=== PATIENT | female | born 1990 | race Caucasian/White ===

== ENCOUNTER 2019-12-03 04:58 | Emergency (ER) | payer SELFPAY ==
[2019-12-03] MEDS ORDERED: ONDANSETRON HCL INJ/PF 4 MG/2 ML SDV IV ONE (06:05)
[2019-12-03] MEDS ORDERED: NORMAL SALINE 1000 ML 1,000 ML IV ONE (06:05)
[2019-12-03] MEDS ORDERED: MORPHINE SULFATE 10 MG/ML INJ IV ONE (06:05)
--- NOTE | 2019-12-03 06:07 | ER Document Report ---
ED Medical Screen (RME) - General Chief Complaint: Abdominal Pain Stated Complaint: RIGHT ABDOMINAL PAIN Time Seen by Provider: 12/03/19 06:00 Primary Care Provider: QING JAFFE [Primary Care Provider] - Follow up as needed Notes: 29-year-old female with chief complaint of right mid abdominal pain that is intermittently very sharp, she has vomited twice, symptoms started 3 PM last night and have not resolved. Denies any abdominal surgeries. Denies fever. Reports normal recent bowel movement. Denies flank pain. - Related Data Allergies/Adverse Reactions: No Known Allergies Allergy (Verified 12/03/19 05:08) Past Medical History - Social History Chew tobacco use (# tins/day): No Frequency of alcohol use: None Drug Abuse: None Physical Exam - Vital signs Vitals: Temp Pulse Resp BP Pulse Ox 97.5 F 83 18 127/71 H 100 12/03/19 05:02 12/03/19 05:02 12/03/19 05:02 12/03/19 05:02 12/03/19 05:02 - Abdominal Tenderness: Tender - Tender in the mid right abdomen and slightly in the upper abdomen, no overt McBurney's point tenderness Course - Re-evaluation Re-evalutation: I have greeted and performed a rapid initial assessment of this patient. A comprehensive ED assessment and evaluation of the patient, analysis of test results and completion of the medical decision making process will be conducted by additional ED providers. - Vital Signs Vital signs: Temp Pulse Resp BP Pulse Ox 97.5 F 83 18 127/71 H 100 12/03/19 05:03 12/03/19 05:02 12/03/19 05:02 12/03/19 05:02 12/03/19 05:02 Doctor's Discharge - Discharge Referrals: QING JAFFE [Primary Care Provider] - Follow up as needed
[2019-12-03 06:47] LABS: ABSOLUTE LYMPHOCYTES (AUTO) 1.1 10^3/uL (0.5-4.7); ABSOLUTE MONOCYTES (AUTO) 0.5 10^3/uL (0.1-1.4); ABSOLUTE NEUT (AUTO) 5.2 10^3/uL (1.7-8.2); BASOPHILS % (AUTO) 0.1 % (0-2); EOSINOPHILS % (AUTO) 0.3 % (0-6); HEMATOCRIT 41.6 % (36.0-47.0); HEMOGLOBIN 14.5 g/dL (12.0-15.5); MEAN CORPUSCULAR HEMOGLOBIN 30.3 pg (27.0-33.4); MEAN CORPUSCULAR HGB CONC 34.9 g/dL (32.0-36.0); MEAN CORPUSCULAR VOLUME 87 fl (80-97); MONOCYTES % (AUTO) 6.7 % (3-13); PLATELET COUNT 270 10^3/uL (150-450); SEGMENTED NEUTROPHILS % (AUTO) 76.9 % (42-78); TOTAL CELLS COUNTED % (AUTO) 100 %; WHITE BLOOD COUNT 6.8 10^3/uL (4.0-10.5)
[2019-12-03 06:57] LABS: APPEARANCE,URINE SLIGHTLY-CLOUDY; BILIRUBIN,URINE NEGATIVE (NEGATIVE); COLOR,URINE YELLOW; GLUCOSE, URINE NEGATIVE (NEGATIVE); KETONES,URINE NEGATIVE (NEGATIVE); LEUKOCYTE ESTERASE,URINE TRACE (NEGATIVE); NITRITE,URINE NEGATIVE (NEGATIVE); PROTEIN,URINE NEGATIVE (NEGATIVE); URINE SPECIFIC GRAVITY 1.018; UROBILINOGEN,URINE NEGATIVE mg/dL (<2.0)
[2019-12-03 06:58] LABS: ALBUMIN 4.4 g/dL (3.5-5.0); ALKALINE PHOSPHATASE 87 U/L (38-126); ANION GAP 9 (5-19); ASPARTATE AMINO TRANSFERASE 20 U/L (14-36); BILIRUBIN,TOTAL 0.2 mg/dL (0.2-1.3); BLOOD UREA NITROGEN 17 mg/dL (7-20); CARBON DIOXIDE 24 mmol/L (22-30); CHLORIDE 106 mmol/L (98-107); GLUCOSE 98 mg/dL (75-110); POTASSIUM 4.3 mmol/L (3.6-5.0); TOTAL PROTEIN 7.2 g/dL (6.3-8.2)
--- NOTE | 2019-12-03 07:14 | ER Document Report ---
Entered by CARMITA PATTON SCRIBE 12/03/19 0653 Acting as scribe for:ALPESH PEÑA MD ED General - General Chief Complaint: Abdominal Pain Stated Complaint: RIGHT ABDOMINAL PAIN Time Seen by Provider: 12/03/19 06:00 Primary Care Provider: [facility] [Provider Group] - Follow up in 1 week LOCALMD,NO [NO LOCAL MD] - Follow up as needed Information source: Patient Notes: This 29-year-old female presents to the emergency department complaining of right lateral mid abdominal pain that began 4 hours ago. Patient describes the pain as constant, sharp and "like something stabbing". Patient states that she has never experienced a pain like this. Patient explains that the pain woke her from her sleep and she has vomited twice since the pain started. Patient denies nausea, diarrhea and fever. Patient states that her last menstrual period start ed two days ago which was on time and normal. - Related Data Allergies/Adverse Reactions: No Known Allergies Allergy (Verified 12/03/19 05:08) Past Medical History - General Information source: Patient - Social History Smoking Status: Never Smoker Cigarette use (# per day): No Chew tobacco use (# tins/day): No Frequency of alcohol use: None Drug Abuse: None Occupation: Dental Hygienist Family History: Reviewed & Not Pertinent Patient has homicidal ideation: No - Medical History Medical History: Negative Surgical Hx: Negative Review of Systems - Review of Systems Constitutional: See HPI. denies: Fever EENT: No symptoms reported Cardiovascular: No symptoms reported Respiratory: No symptoms reported Gastrointestinal: See HPI, Abdominal pain, Vomiting. denies: Diarrhea, Nausea Genitourinary: No symptoms reported Female Genitourinary: See HPI, Last menstrual period Musculoskeletal: No symptoms reported Skin: No symptoms reported Hematologic/Lymphatic: No symptoms reported Neurological/Psychological: No symptoms reported -: Yes All other systems reviewed and negative Physical Exam - Vital signs Vitals: Temp Pulse Resp BP Pulse Ox 97.5 F 83 18 127/71 H 100 12/03/19 05:02 12/03/19 05:02 12/03/19 05:02 12/03/19 05:02 12/03/19 05:02 - Notes Notes: Physical Exam: General: Alert, appears well. HEENT: Normocephalic. Atraumatic. PERRL. Extraocular movements intact. Oropharynx clear. Neck: Supple. Non-tender. Respiratory: No respiratory distress. Clear and equal breath sounds bilaterally. Cardiovascular: Regular rate and rhythm. Abdominal: Lateral mid abdomen tenderness to palpation. No distension. Normal Bowel Sounds. Back: CVA tenderness laterally to percussion and non-tender to palpation. CVA non-tender anteriorly to percussion but tender to palpation. Extremities: Moves all four extremities. Upper extremities: Normal inspection. Normal ROM. Lower extremities: Normal inspection. No edema. Normal ROM. Neurological: Normal cognition. AAOx4. Normal speech. Psychological: Normal affect. Normal Mood. Skin: Warm. Dry. Normal color. Course - Vital Signs Vital signs: Temp Pulse Resp BP Pulse Ox 97.5 F 83 18 127/71 H 100 12/03/19 05:03 12/03/19 05:02 12/03/19 05:02 12/03/19 05:02 12/03/19 05:02 - Laboratory Result Diagrams: 12/03/19 06:35 12/03/19 06:35 Laboratory results interpreted by me: 12/03/19 06:42 Urine Blood LARGE H Ur Leukocyte Esterase TRACE H - Diagnostic Test Radiology reviewed: Image reviewed, Reports reviewed - Noncontrasted CT scan done of the abdomen pelvis shows a 5 to 6 mm stone just distal to the UPJ with moderate right hydronephrosis. Discharge - Discharge Clinical Impression: Kidney stone on right side Condition: Stable Disposition: HOME, SELF-CARE Additional Instructions: Kidney Stone You are passing or have passed a kidney stone. These stones are usually due to increased calcium or uric acid concentrations in your urine. Stones within the kidney itself are not painful. The pain occurs as the stone leaves the kidney to pass down the long tube, called the ureter, leading to the bladder. If the stone is small, it will usually pass by itself. Most patients can pass the stone at home. You will usually receive medications for pain, nausea or vomiting, and sometimes a medication to assist in passing the kidney stone. However, if the pain is very severe or if vomiting prevents you from taking oral pain medications, you may need to return for further treatment. Drink three or four quarts of fluids per day. You will be given pain medication (if needed) and urine strainers. Strain all your urine to see if the stone passes. If your doctor has asked you to bring the stone in for analysis, return with the stone once it has passed. Return if pain or vomiting become severe, if you develop a high fever, if you are unable to pass your urine, or if other unusual symptoms occur. Start taking the Flomax tomorrow. Take ibuprofen 400 to 600 mg every 6 hours. Drink plenty of fluids throughout the day and evening. Take the pain medication if needed. Call [facility] Thursday to schedule an appointment next week. RETURN TO THE EMERGENCY ROOM IF ANY NEW OR WORSENING SYMPTOMS. Prescriptions: Tamsulosin HCl [Flomax 0.4 mg Cap.sr] 0.4 mg PO DAILY #7 cap.sr.24h Oxycodone HCl/Acetaminophen [Percocet 5-325 mg Tablet] 1 tab PO ASDIR PRN #15 tablet PRN Reason: Referrals: [facility] [Provider Group] - Follow up in 1 week LOCAL,NO [NO LOCAL MD] - Follow up as needed I personally performed the services described in the documentation, reviewed and edited the documentation which was dictated to the scribe in my presence, and it accurately records my words and actions.
[2019-12-03] MEDS ORDERED: KETOROLAC TROMETHAMINE INJ/PF 30 MG/1 ML SDV IV ONE (07:34)
--- NOTE | 2019-12-03 07:43 | RADIOLOGY REPORT (SQ) ---
CT ABDOMEN AND PELVIS WITHOUT INTRAVENOUS CONTRAST: 12/03/2019 6:40 AM CDT HISTORY: 29-year old with right flank pain, hematuria. COMPARISON: None available TECHNIQUE: Axial contiguous images were obtained from the lung bases to the proximal femurs without oral or intravenous contrast administered. Sagittal and coronal reconstructions were also obtained and reviewed. This exam was performed according to our departmental dose-optimization program, which includes automated exposure control, adjustment of the mA and/or KV according to the patient's size and/or use of iterative reconstruction technique. FINDINGS: The lung bases appear clear without evidence of a focal consolidative airspace opacity or effusions. Evaluation of the solid organs is limited by the lack of intravenous contrast. The visualized hepatic parenchyma is unremarkable. The gallbladder demonstrates no evidence of calcified gallstones The spleen, pancreas, and adrenals are normal in size and contour. There is moderate right hydronephrosis, secondary to a 5 to 6 mm calculus proximal right ureter. This is just distal to the ureteropelvic junction. No left renal or ureteral calculi are seen. No additional renal calculi are noted. Bladder is minimally distended, but grossly appears unremarkable. The stomach is not well distended. The small bowel loops appear unremarkable. No pericolonic inflammatory stranding is seen. There are multiple diverticula seen within the sigmoid and descending colon, without evidence to suggest diverticulitis. The appendix appears unremarkable. Focal There is no evidence of pneumoperitoneum or free fluid. The aorta and IVC appear normal in size. No significantly enlarged lymph nodes are seen in the abdomen or pelvis. Review of the bone show no evidence of any suspicious lytic or blastic lesions. IMPRESSION: There is moderate right hydronephrosis, secondary to a 5 to 6 mm calculus proximal right ureter. This is just distal to the ureteropelvic junction.
[2019-12-03] MEDS ORDERED: TAMSULOSIN HCL 0.4 MG CAP.SR.24H PO ONE (07:54)
[2019-12-03 08:32] VITALS: BP 116/72
== END 2019-12-03 08:33 | disposition home or self-care (01) ==
LOC: ER 04:58
DX: N20.0 Calculus of kidney (principal); R10.9 Unspecified abdominal pain; R11.10 Vomiting, unspecified
CPT/HCPCS: 99284; 96361; 96374; 96375; 36415; 87086; 83690; 84703; 85025; 87088; 80053; 81001; 74176; J1885; J2270; J2405; J7030